=== PATIENT | male | born 1955 | race African-American/Black ===

== ENCOUNTER → 2020-04-02 | Outpatient (CLI) | payer OTHER ==
[2020-04-02 16:58] LABS: BASOPHILS % (AUTO) 1 % (0-1); EOSINOPHILS % (AUTO) 5 % (1-7); LYMPHOCYTES % (AUTO) 47 % (22-44); MEAN CORPUSCULAR HEMOGLOBIN 29.8 pg (27.5-34.5); MEAN CORPUSCULAR HGB CONC 32.5 g/dL (33.2-36.2); MEAN PLATELET VOLUME 7.7 fL (7.4-10.4); MONOCYTES % (AUTO) 9 % (2-9); NEUTROPHILS % (AUTO) 39 % (42-75); PLATELET COUNT 218 x10^3/uL (130-400); RED BLOOD COUNT 4.69 x10^6/uL (4.38-5.82)
[2020-04-02 16:59] LABS: MD NO
[2020-04-02 17:06] LABS: ANION GAP 5 mmol/L (5-15); CALCIUM 8.9 mg/dL (8.5-10.1); CHLORIDE 109 mmol/L (98-107); CREATININE 1.34 mg/dL (0.7-1.3); MICROSCOPIC NOT IND
[2020-04-02 17:09] LABS: INTERNATIONAL NORMALIZED RATIO 1.02 (0.93-1.1); PROTHROMBIN TIME 10.8 Seconds (9.6-11.5)
== END | disposition home or self-care (01) ==
LOC: STAR 15:40
PROVIDERS: ATTEND Neurological Surgery
DX: Z01.818 Encounter for other preprocedural examination (principal); M48.061 Spinal stenosis, lumbar region without neurogenic claudication; M51.37 Other intervertebral disc degeneration, lumbosacral region; R00.1 Bradycardia, unspecified
CPT/HCPCS: 36415; 71046; 72110; 80048; 81003; 85025; 85610; 85730; 93005

== ENCOUNTER 2020-04-17 05:38 | Day surgery (SDC) | payer OTHER ==
[~2020-04-17] VITALS: Ht 188 cm; Wt 99.0 kg
[2020-04-17] MEDS ORDERED: CHLORHEXIDINE 15 ML UDC ONE (06:13)
[2020-04-17] MEDS ORDERED: EPINEPHRINE 1 MG/ML, 1ML ONE (06:14)
[2020-04-17] MEDS ORDERED: VANCOMYCIN 1,000 MG ONE (06:14)
[2020-04-17] MEDS ORDERED: BUPIVACAINE/PF 0.25% ONE (06:14)
[2020-04-17] MEDS ORDERED: methylPREDNISolone SOD SUCC 125 MG/2 ML ONE (06:15)
[2020-04-17] MEDS ORDERED: BACITRACIN 50,000 UNIT ONE (06:16)
[2020-04-17] MEDS ORDERED: CHLORHEXIDINE 15 ML UDC MM ONE (06:30)
[2020-04-17] MEDS ORDERED: LACTATED RINGERS 1,000 ML IV SCH (06:30)
[2020-04-17] MEDS ORDERED: LIDOCAINE-MPF 1%, 2ML INFIL ONE (06:30)
[2020-04-17] MEDS ORDERED: BUPIVACAINE/PF 0.5% ONE (06:51)
[2020-04-17] MEDS ORDERED: PROPOFOL 10 MG/ML, 20ML ONE (06:56)
[2020-04-17] MEDS ORDERED: LIDOCAINE-MPF 2% ,5ML ONE (06:56)
[2020-04-17] MEDS ORDERED: MIDAZOLAM 1 MG/ML, 2ML ONE (06:56)
[2020-04-17] MEDS ORDERED: FENTANYL PF 250 MCG/5ML ONE (06:56)
[2020-04-17] MEDS ORDERED: ROCURONIUM 10MG/ML,5ML ONE (06:56)
[2020-04-17] MEDS ORDERED: KETAMINE 10 MG/ML, 20ML ONE (07:02)
[2020-04-17] MEDS ORDERED: GLYCOPYRROLATE 0.2MG/1ML, 5ML ONE (07:08)
[2020-04-17] MEDS ORDERED: DEXAMETHASONE 4 MG/ML, 1ML ONE (07:08)
[2020-04-17] MEDS ORDERED: NEOSTIGMINE 1 MG/ML, 10ML ONE (07:08)
[2020-04-17] MEDS ORDERED: CEFAZOLIN 1,000 MG ONE (07:08)
[2020-04-17] MEDS ORDERED: ONDANSETRON 2MG/ML, 2ML ONE (07:08)
[2020-04-17] MEDS ORDERED: FENTANYL PF 100 MCG/2ML ONE (07:49)
[2020-04-17] MEDS ORDERED: FENTANYL PF 100 MCG/2ML EPIDPUSH ONE (07:51)
[2020-04-17] MEDS ORDERED: ACETAMINOPHEN 325 MG TABLET PO PRN ×2 (08:00→09:30)
[2020-04-17] MEDS ORDERED: FENTANYL PF 100 MCG/2ML IV PRN (08:00)
[2020-04-17] MEDS ORDERED: DIPHENHYDRAMINE 50 MG/ML, 1ML IVPush PRN (08:00)
[2020-04-17] MEDS ORDERED: HYDROmorphone 1 MG/ML, 1ML INJ IVPush PRN (08:00)
[2020-04-17] MEDS ORDERED: LABETALOL 5MG/ML, 20ML IV PRN (08:00)
[2020-04-17] MEDS ORDERED: PROMETHAZINE 25 MG/ML, 1ML IVPush PRN (08:00)
[2020-04-17] MEDS ORDERED: DIAZEPAM 5 MG/ML, 2ML IVPush PRN (08:00)
[2020-04-17] MEDS ORDERED: OXYcodone 5 MG/5 ML ORAL.SOL UDC PO PRN (08:00)
[2020-04-17] MEDS ORDERED: MEPERIDINE/PF 25MG/0.5ML IVPush PRN (08:00)
[2020-04-17] MEDS ORDERED: hydrALAzine 20 MG/ML, 1ML IV PRN (08:00)
[2020-04-17] MEDS ORDERED: ONDANSETRON 2MG/ML, 2ML IVPush PRN (08:00)
[2020-04-17] MEDS ORDERED: OXYC-302 PO (09:06)
[2020-04-17] MEDS ORDERED: CYCL-259 PO (09:06)
[2020-04-17] MEDS ORDERED: METHOCARBAMOL 1,000 MG in DEXTROSE 5% 100 ML IV ONE (09:30)
== END 2020-04-17 13:20 | disposition home or self-care (01) ==
LOC: OUT 05:38
PROVIDERS: ATTEND Neurological Surgery
DX: M48.061 Spinal stenosis, lumbar region without neurogenic claudication (principal); Z20.828 Contact with and (suspected) exposure to other viral communicable diseases; M48.07 Spinal stenosis, lumbosacral region; M51.36 Other intervertebral disc degeneration, lumbar region; I44.0 Atrioventricular block, first degree; K76.0 Fatty (change of) liver, not elsewhere classified; Z96.643 Presence of artificial hip joint, bilateral; Z82.61 Family history of arthritis; Z82.3 Family history of stroke
CPT/HCPCS: 63047; 63048; 72100; 87635; C1751; J0171; J0690; J1100; J2250; J2405; J2704; J2710; J2800; J2930; J3010; J7120; J3370